=== PATIENT | male | born 1985 | race African-American/Black ===

== ENCOUNTER 2021-06-14 18:13 | Emergency (ER) | payer SELFPAY ==
[2021-06-14] MEDS ORDERED: Ibuprofen 200 MG TAB ONE (19:45)
[2021-06-15 17:43] LABS: SARS-CoV-2 PCR by NAA Not Detected (NotDetected)
== END 2021-06-14 19:45 | disposition home or self-care (01) ==
LOC: CSHERS 18:13
DX: J02.9 Acute pharyngitis, unspecified (principal); R05.9 Cough, unspecified; R09.81 Nasal congestion; Z20.822 Contact with and (suspected) exposure to COVID-19
CPT/HCPCS: 99283; U0003; U0005